=== PATIENT | female | born 1985 | race Asian ===

== ENCOUNTER 2019-03-23 16:58 | Emergency (ER) | payer OTHER ==
[~2019-03-23] VITALS: Ht 157.5 cm; Wt 73.0 kg
[2019-03-23 17:54] LABS: *BILIRUBIN,URIN NEGATIVE (NEGATIVE); *BLOOD, URINE NEGATIVE (NEGATIVE); *COLOR,URINE YELLOW (YELLOW); *KETONES,URINE 3+ (NEGATIVE); *UROBILINOGEN,URINE 0.2 E.U./dl (NORMAL); LEUKOCYTE ESTERASE ,URINE TRACE (NEGATIVE); NITRITE, URINE NEGATIVE (NEGATIVE); PH,URINE 6.5 (5.0-8.0); UGLUCOSE NEGATIVE (NEGATIVE)
[2019-03-23 18:01] LABS: *CLARITY,URINE SLIGHTLY HAZY (CLEAR)
[2019-03-23 18:02] LABS: BACTERIA,URINE FEW /HPF (NONE SEEN); SQUAMOUS EPITHELIAL CELL,UR MODERATE /HPF (NONE SEEN)
[2019-03-23 18:03] LABS: MUCUS,URINE MODERATE /LPF (0-FEW)
--- NOTE | 2019-03-23 18:28 | NUR ---
Bedside U/S scanning in progress.
--- NOTE | 2019-03-23 19:05 | NUR ---
shift report received from LARRY Becerra.
--- NOTE | 2019-03-23 19:59 | NUR ---
Patient discharged to home in stable conditon. Written and verbal after care instructions given. Patient verbalizes understanding of instructions. [facility] came to transfer patient to [facility]. Patient alert and oriented x3. patient denies any pain or discomfort at this time. Vital signs are stable. Report was given to receiving nurse at facility by bryson JUAREZ. Patient vital signs are stable. All belongings taken with patient. All documents given to EMT. all records placed in folder given to patient. No medications adminstered prior to discharge.
== END 2019-03-23 20:00 | disposition short-term general hospital (02) ==
LOC: ER 17:00
DX: O26.892 Other specified pregnancy related conditions, second trimester (principal); R10.30 Lower abdominal pain, unspecified; Z88.6 Allergy status to analgesic agent; Z88.8 Allergy status to other drugs, medicaments and biological substances; Z3A.27 27 weeks gestation of pregnancy; V49.9XXA Car occupant (driver) (passenger) injured in unspecified traffic accident, initial encounter; Y93.89 Activity, other specified; Y92.89 Other specified places as the place of occurrence of the external cause; Y99.8 Other external cause status
CPT/HCPCS: 87077; 87086; A4663